=== PATIENT | male | born 1990 | race Caucasian/White ===

== ENCOUNTER 2018-07-09 12:51 | Day surgery (SDC) | payer OTHER ==
[2018-07-09] MEDS ORDERED: FENTAnyl 50 MCG/ML VIAL (13:42)
[2018-07-09] MEDS ORDERED: PROPOFOL 20 ML (13:43)
[2018-07-09] MEDS ORDERED: MIDAZOLAM 1 MG/ML 2 ML INJ (13:43)
[2018-07-09] MEDS ORDERED: ONDANSETRON 4 MG INJ (13:44)
[2018-07-09] MEDS ORDERED: LIDOCAINE 2% (SDV) 5 ML INJ (13:44)
[2018-07-09] MEDS ORDERED: CEFAZOLIN 1 GM INJ (13:45)
[2018-07-09 14:01] LABS: ADD MAN DIFF? NO
[2018-07-09 14:03] LABS: BASOPHILS % 0.4 % (0.0-2.0); EOSINOPHILS # 0.1 10^3/ul (0.0-0.5); EOSINOPHILS % 0.7 % (0.0-7.0); HEMATOCRIT 46.4 % (42.0-52.0); HEMOGLOBIN 15.3 g/dl (14.0-18.0); LYMPHOCYTES # 2.1 10^3/ul (0.8-2.9); LYMPHOCYTES % 20.6 % (15.0-51.0); MEAN CORPUSCULAR HEMOGLOBIN 29.5 pg (29.0-33.0); MEAN CORPUSCULAR VOLUME 89.6 fl (82.0-101.0); MEAN PLATELET VOLUME 10.2 fl (7.4-10.4); MONOCYTE # 0.9 10^3/ul (0.3-0.9); MONOCYTES % 8.7 % (0.0-11.0); NEUTROPHIL # 6.9 10^3/ul (1.6-7.5); NEUTROPHILS % 69.2 % (39.0-77.0); PLATELET COUNT 410 10^3/UL (140-415); RED BLOOD COUNT 5.18 10^6/ul (4.70-6.10); RED CELL DISTRIBUTION WIDTH 13.2 % (11.5-14.5)
[2018-07-09 14:06] LABS: ADD UMIC NO; UR ASCORBIC ACID NEGATIVE (NEGATIVE); UR BILIRUBIN (Dip) NEGATIVE (NEGATIVE); UR BLOOD (Dip) NEGATIVE (NEGATIVE); UR CLARITY CLEAR (CLEAR); UR COLOR YELLOW (YELLOW); UR GLUCOSE (Dip) NEGATIVE (NEGATIVE); UR KETONES (Dip) NEGATIVE (NEGATIVE); UR LEUKOCYTE ESTERASE (Dip) NEGATIVE Leu/ul (NEGATIVE); UR NITRITE (Dip) NEGATIVE (NEGATIVE); UR SPECIFIC GRAVITY (Dip) 1.021 (1.003-1.030); UR TOTAL PROTEIN (Dip) NEGATIVE (NEGATIVE); UR UROBILINOGEN (Dip) NEGATIVE (NEGATIVE)
[2018-07-09] MEDS ORDERED: DIPHENHYDRAMINE 50 MG INJ IV (14:30)
[2018-07-09] MEDS ORDERED: IPRATROPIUM (NEB) 0.5 MG/2.5 ML AMP HHN (14:30)
[2018-07-09] MEDS ORDERED: MEPERIDINE 25 MG INJ IV (14:30)
[2018-07-09] MEDS ORDERED: FENTAnyl 50 MCG/ML VIAL IV ×2 (14:30)
[2018-07-09] MEDS ORDERED: HYDROmorphONE 1 MG/5 ML IV SYRINGE IV ×3 (14:30)
[2018-07-09] MEDS ORDERED: HYDROmorphONE 2 MG/ML SYG (15:25)
[2018-07-09] MEDS ORDERED: ROPIVACAINE 0.5 % 30 ML VIAL (15:26)
[2018-07-09] MEDS: BUPIVACAINE 0.5% (SDV) 30 ML INJ (16:52)
[2018-07-09] MEDS: LIDOCAINE 1%/EPI 30 ML INJ (16:53)
[2018-07-09] MEDS: ONDANSETRON 4 MG INJ IV (18:46)
== END 2018-07-09 19:11 | disposition home or self-care (01) ==
LOC: SDS 12:51
DX: S52.502A Unspecified fracture of the lower end of left radius, initial encounter for closed fracture (principal); V29.9XXA Motorcycle rider (driver) (passenger) injured in unspecified traffic accident, initial encounter
CPT/HCPCS: 25607; 73110-LT; 81003; 85025